=== PATIENT | female | born 2000 | race Hispanic/Latino ===

== ENCOUNTER 2024-06-27 02:07 | Emergency (ER) | payer BC ==
[2024-06-27] MEDS ORDERED: ACETAMINOPHEN 500 MG TAB ONE (02:30)
[2024-06-27] MEDS ORDERED: NA CHLORIDE 0.9% 2,000 ML ONE (02:39)
[2024-06-27 03:28] LABS: Absolute Lymphocytes (CBC) 0.9 K/uL (0.7-4.9); Absolute Monocytes 1.2 K/uL (0.1-1.3); Absolute Neutrophil 17.1 K/uL (1.8-8.0); Basophils % 0.1 % (0-1.3); Hematocrit 26.8 % (36.0-45.0); Hemoglobin 9.1 g/dL (12.0-15.0); Lymphocytes % 4.7 % (15.3-44.8); MCH 29.9 pg (27.0-35.0); MCHC 33.9 g/dL (32.0-36.0); MCV 88.2 fL (80-100); MPV 8.6 fL (7.6-11.3); Monocytes % 6.4 % (3.3-12.3); Neutrophils % 88.8 % (41.7-73.7); Platelets 196 thou/uL (152-406); RBC Red Blood Cell Count 3.03 M/uL (3.86-4.86); Red Cell Distribution Width 14.5 % (12.1-15.2)
[2024-06-27 03:59] LABS: Albumin 2.1 g/dL (3.4-5.0); Albumin/Globulin Ratio 0.5 (1.1-1.8); Anion Gap 10.9 mEq/L (5.0-15.0); Globulin 4.4 g/dL (2.3-3.5); Potassium 2.9 mEq/L (3.5-5.1); Protein, Total 6.5 g/dL (6.4-8.2)
[2024-06-27 04:01] LABS: Renal Epithelial <5 /HPF (None Seen); Specific Gravity 1.006 (1.005-1.030); Urine Bacteria <20 /HPF (<20); Urine Bilirubin NEGATIVE (Negative); Urine Blood 1+ (Negative); Urine Clarity Extremely Turbid (Clear); Urine Color Yellow (Yellow); Urine Culture Reflex Order REFLEXED; Urine Glucose NEGATIVE (Negative); Urine Ketones NEGATIVE (Negative); Urine Microscopic Reflex YN ORDER UMIC; Urine Mucus Slight /HPF (None Seen); Urine Nitrite NEGATIVE (Negative); Urine Protein 1+ (Negative); Urine RBC 21-50 /HPF (None Seen); Urine Urobilinogen 1+ (Normal); Urine WBC >50 /HPF (<5)
[2024-06-27 04:03] LABS: SARS-CoV-2 Antigen CONTROL BLUE LINE VIS/BG OK; SARS-CoV-2 Antigen Rapid Res Negative (Negative)
--- NOTE | 2024-06-27 04:07 | RAD REPORT ---
EXAM DESCRIPTION: OB Limited CLINICAL HISTORY: 24 years Female, fever body aches 22 weeks COMPARISON: None. TECHNIQUE: Limited greater than 14 week obstetrical ultrasounds performed with transabdominal imaging . FINDINGS: measurements: FL: 3.9 cm compatible with an estimated gestational age of 22 weeks, 3 days. ZAYRA: Qualitatively normal appearing ZAYRA. There is a deepest vertical pocket measuring at least 5.5 cm . Placenta: Posterior. No definite abnormality. Cervical length: Not provided. No definite abnormality presentation: Cephalic heart rate: 163 bpm. No definite abnormality of the maternal adnexa Anatomic survey: Not performed. IMPRESSION: 1. Single live intrauterine with estimated gestational age of 22 weeks, 3 days. heart rate of 163 bpm. Close continued obstetrical follow-up recommended. Electronically signed by: Miguel Yan DO 06/27/2024 04:02 AM [facility] [id number] Due to temporary technical issues with the PACS/Power scribe reporting system, reports are being signed by the in-house radiologist without review as a courtesy to ensure prompt reporting the interpreting radiologist is fully responsible for the content of the report. Transcribed Date/Time: 06/27/2024 4:07 AM
--- NOTE | 2024-06-27 04:27 | EDPHYS ---
Physician Documentation [facility] Name: Zuleika Beaulieu Age: 24 yrs Sex: Female : 2000 Arrival Date: 06/27/2024 Time: 02:07 Bed 8 Private MD: ED Physician Inge Jin HPI: 06/27 02:35 This 24 yrs old Female presents to ER via Ambulatory with complaints of 22 sp3 WEEKS PREG, Fever. 02:35 24-year-old female G1, P0 at 22 weeks presents with chief complaint fever, body aches sp3 and feelings of dehydration. Symptoms been going on for the last 4 days she states that fever breaks occasionally on acetaminophen but today is worse. She endorses cough, congestion upper respiratory symptoms. She denies headache, neck pain or stiffness, chest pain, shortness of breath, abdominal pain, vaginal bleeding or discharge, rash, known sick contacts, travel history, or any other signs or symptoms on ROS at this time.. 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 - Infectious Disease History:: Denies. - Social history:: Smoking status: Patient denies any tobacco usage or history of. ROS: 02:36 Eyes: Negative for injury, pain, redness, and discharge, ENT: Negative for injury, sp3 pain, and discharge, Neck: Negative for injury, pain, and swelling, Respiratory: Negative for shortness of breath, cough, wheezing, and pleuritic chest pain, Abdomen/GI: Negative for abdominal pain, nausea, vomiting, diarrhea, and constipation, Back: Negative for injury and pain, MS/Extremity: Negative for injury and deformity, Skin: Negative for injury, rash, and discoloration, Neuro: Negative for headache, weakness, numbness, tingling, and seizure, Psych: Negative for depression, anxiety, suicide ideation, homicidal ideation, and hallucinations, Allergy/Immunology: Negative for hives, rash, and allergies, Endocrine: Negative for neck swelling, polydipsia, polyuria, polyphagia, and marked weight changes, Hematologic/Lymphatic: Negative for swollen nodes, abnormal bleeding, and unusual bruising, Exam: 02:37 Constitutional: This is a well developed, well nourished patient who is awake, alert, sp3 and in no acute distress. Head/Face: Normocephalic, atraumatic. Eyes: Pupils equal round and reactive to light, extra-ocular motions intact. Lids and lashes normal. Conjunctiva and sclera are non-icteric and not injected. Cornea within normal limits. Periorbital areas with no swelling, redness, or edema. Neck: Trachea midline, no thyromegaly or masses palpated, and no cervical lymphadenopathy. Supple, full range of motion without nuchal rigidity, or vertebral point tenderness. No Meningismus. Chest/axilla: Normal chest wall appearance and motion. Nontender with no deformity. No lesions are appreciated. Respiratory: Lungs have equal breath sounds bilaterally, clear to auscultation and percussion. No rales, rhonchi or wheezes noted. No increased work of breathing, no retractions or nasal flaring. Abdomen/GI: Soft, non-tender, with normal bowel sounds. No distension or tympany. No guarding or rebound. No evidence of tenderness throughout. Back: No spinal tenderness. No costovertebral tenderness. Full range of motion. Skin: Warm, dry with normal turgor. Normal color with no rashes, no lesions, and no evidence of cellulitis. MS/ Extremity: Pulses equal, no cyanosis. Neurovascular intact. Full, normal range of motion. Neuro: Awake and alert, GCS 15, oriented to person, place, time, and situation. Cranial nerves II-XII grossly intact. Motor strength 5/5 in all extremities. Sensory grossly intact. Cerebellar exam normal. Normal gait. Psych: Awake, alert, with orientation to person, place and time. Behavior, mood, and affect are within normal limits. 02:37 Cardiovascular: Rate: tachycardic, Vital Signs: 02:21 BP 121 / 70; Pulse 149; Resp 22; cg 02:21 Temp 102.8; cg 02:21 Pulse Ox 100% ; Weight 52.16 kg; Height 5 ft. 2 in. ; Pain 7/10; cg 03:54 BP 92 / 47; Pulse 109; Resp 18; Temp 99.9; Pulse Ox 98% ; Pain 0/10; bm8 04:53 BP 103 / 62; Pulse 107; Resp 18; Temp 98.9; Pulse Ox 100% ; Pain 0/10; bm8 05:47 BP 94 / 51; Pulse 103; Resp 20; Temp 98.9; Pulse Ox 99% ; Pain 0/10; bm8 02:21 Body Mass Index 21.03 (52.16 kg, 157.48 cm) cg 02:21 Pain Scale: Adult cg 03:54 Pain Scale: Adult bm8 04:53 Pain Scale: Adult bm8 05:47 Pain Scale: Adult bm8 Kathy Coma Score: 03:54 Eye Response: spontaneous(4). Motor Response: obeys commands(6). Verbal Response: bm8 oriented(5). Total: 15. 04:53 Eye Response: spontaneous(4). Motor Response: obeys commands(6). Verbal Response: bm8 oriented(5). Total: 15. 05:47 Eye Response: spontaneous(4). Motor Response: obeys commands(6). Verbal Response: bm8 oriented(5). Total: 15. MDM: 02:26 Medical Screening Exam initiated sp3 02:38 Data reviewed: vital signs, nurses notes, lab test result(s), radiologic studies. ED sp3 course: 24-year-old 22 weeks now with febrile illness. Differential diagnosis includes viral illness, influenza, COVID-19, strep pharyngitis, RSV, pneumonia, bronchitis, other sepsis, among others. Workup will include chest x-ray, urine analysis, full laboratory workup including lactate, sepsis fluid bolus, and general supportive care. Patient denies any abdominal or OB type complaints.. 04:25 ED course: Patient with 19,000 white count and current blood pressure 88/47 with heart sp3 rate 109 after IV fluids. Lactate 1.7. Rocephin IV has been started 1 g. UA demonstrates clear UTI. Swabs are negative as is chest x-ray. Ultrasound demonstrates normal consistent with dates without complication.. 04:35 ED course: Patient being transferred due to and establish care at [facility].. sp3 04:35 ED course: Reevaluation of sepsis after fluid bolus demonstrates heart rate down to sp3 109, temperature at 99.9 and blood pressure at 92/47. We will continue IV fluids.. 06/27 02:30 Order name: Blood Culture Adult (2) sp3 06/27 02:30 Order name: CBC with Diff; Complete Time: 05:59 sp3 11/22 02:30 Order name: CMP; Complete Time: 04:20 3 06/27 02:30 Order name: Lactate w/ 2H reflex if indic.; Complete Time: 04:20 3 06/27 02:30 Order name: Urinalysis w/ reflexes; Complete Time: 04:20 3 06/27 02:30 Order name: Flu; Complete Time: 04:20 3 06/27 02:30 Order name: SARS RAPID; Complete Time: 04:20 sp3 06/27 02:30 Order name: Strep sp3 06/27 03:31 Order name: Manual Differential; Complete Time: 05:59 EDMS 06/27 04:04 Order name: Throat Culture [facility] 06/27 04:07 Order name: Urine Culture [facility] 06/27 02:30 Order name: Chest Single View XRAY 3 06/27 02:39 Order name: US OB Limited; Complete Time: 04:20 3 06/27 02:30 Order name: Cardiac monitoring; Complete Time: 02:43 3 06/27 02:30 Order name: IV Saline Lock - Large Bore; Complete Time: 02:43 sp3 06/27 02:30 Order name: Labs collected and sent; Complete Time: 02:43 3 06/27 02:30 Order name: O2 Per Protocol; Complete Time: 02:43 3 06/27 02:30 Order name: O2 Sat Monitoring; Complete Time: 02:43 3 06/27 02:30 Order name: Vital Signs; Complete Time: 02:43 sp3 Administered Medications: 02:43 Drug: Acetaminophen PO 1000 mg PO once Route: PO; bm8 04:52 Follow up: Response: No adverse reaction bm8 03:07 Drug: NS 0.9% IV (30 ml/kg) 30 ml/kg IV at bolus once; Sepsis Protocol; to be given as lg3 a bolus over 90 minutes Route: IV; Rate: bolus; Site: right antecubital; 04:50 Follow up: Response: No adverse reaction; IV Status: Completed infusion; IV Intake: bm8 2000ml 04:41 Drug: Rocephin IV 1 grams IV at calculated rate once; Given slow IV push per pharmacy lg3 instructions Route: IV; Rate: calculated rate; Site: right antecubital; 04:57 Follow up: Response: No adverse reaction; IV Status: Completed infusion; IV Intake: [id number] 04:57 Drug: Potassium PO Effervescent Tablet 50 mEq PO once; dissolve in 4 ounces of water or lg3 juice Route: PO; 05:48 Follow up: Response: No adverse reaction bm8 04:57 Drug: NS 0.9% IV 1000 ml IV at 1000 ml once; to be given as a bolus over 60 minutes lg3 Route: IV; Rate: 1000 ml; Site: left antecubital; 05:48 Follow up: Response: No adverse reaction; IV Status: Completed infusion; IV Intake: bm8 1000ml Disposition Summary: 06/27/24 04:27 Transfer Ordered Notes: Transfer Location: [facility] System sp3 Reason: Higher level of care sp3 Condition: Stable sp3 Problem: new sp3 Symptoms: have worsened sp3 Accepting Physician: OB on-call at [facility].(06/27/24 06:16) bm8 Diagnosis - Urosepsis, fever, dehydration sp3 Forms: - Medication Reconciliation Form sp3 - SBAR form sp3 Signatures: Dispatcher [employer] Morenita Enriquez, RN RN lg3 Inge Jin MD MD sp3 Tere Oneill RN RN ha1 Danyel Dominguez RN RN bm8 Corrections: (The following items were deleted from the chart) 02: 02:31 BLOOD CULTURE*+BA.LAB.BRZ ordered. EDMS EDMS 02: 02:31 CBC+H.LAB.BRZ ordered. EDMS EDMS 02: 02:31 COMPREHENSIVE METABOLIC PANEL+C.LAB.BRZ ordered. EDMS EDMS 02: 02:31 LACTATE+C.LAB.BRZ ordered. EDMS EDMS 02:31 02:31 Urinalysis+U.LAB.BRZ ordered. EDMS EDMS 02:31 02:31 Influenza Screen (A \T\ B)+BA.LAB.BRZ ordered. EDMS EDMS 02:31 02:31 SARS-COV-2 Antigen Rapid+I.LAB.BRZ ordered. EDMS EDMS 02: 02:31 Respiratory Syncytial Virus Ag+BA.LAB.BRZ ordered. EDMS EDMS 02:31 02:31 Group A Streptococcus Rapid Sc+BA.LAB.BRZ ordered. EDMS EDMS 02:31 02:31 Chest Single View+RAD.RAD.BRZ ordered. EDMS EDMS 02:37 02:36 Constitutional: Negative for fever, chills, and weight loss, Eyes: Negative for sp3 injury, pain, redness, and discharge, ENT: Negative for injury, pain, and discharge, Neck: Negative for injury, pain, and swelling, Respiratory: Negative for shortness of breath, cough, wheezing, and pleuritic chest pain, Abdomen/GI: Negative for abdominal pain, nausea, vomiting, diarrhea, and constipation, Back: Negative for injury and pain, MS/Extremity: Negative for injury and deformity, Skin: Negative for injury, rash, and discoloration, Neuro: Negative for headache, weakness, numbness, tingling, and seizure, Psych: Negative for depression, anxiety, suicide ideation, homicidal ideation, and hallucinations, Allergy/Immunology: Negative for hives, rash, and allergies, Endocrine: Negative for neck swelling, polydipsia, polyuria, polyphagia, and marked weight changes, Hematologic/Lymphatic: Negative for swollen nodes, abnormal bleeding, and unusual bruising, sp3 02:39 02:39 OB Limited+US.RAD.BRZ ordered. EDMS EDMS 06:16 04:27 OB on-call at [facility]. sp3 bm8
--- NOTE | 2024-06-27 04:27 | ER ---
Nurse's Notes [facility] Name: Zuleika Beaulieu Age: 24 yrs Sex: Female : 2000 Arrival Date: 06/27/2024 Time: 02:07 Bed 8 Private MD: Diagnosis: Urosepsis, fever, dehydration Presentation: 06/27 02:21 Chief complaint: Patient states: Fever x 4 days. Highest fever 104. C/o head congestion cg and headache. Coronavirus screen: Vaccine status: Patient reports receiving the 2nd dose of the covid vaccine. Ebola Screen: Patient negative for fever greater than or equal to 101.5 degrees Fahrenheit, and additional compatible Ebola Virus Disease symptoms. Initial Sepsis Screen: Does the patient meet any 2 criteria? No. Patient's initial sepsis screen is negative. 02:21 Method Of Arrival: Ambulatory cg 03:09 Initial Sepsis Screen: Does the patient have a suspected source of infection? No. lg3 Patient's initial sepsis screen is negative. Risk Assessment: Do you want to hurt yourself or someone else? Patient reports no desire to harm self or others. Onset of symptoms was June 23, 2024. 03:09 Acuity: CHRIS 3 lg3 Triage Assessment: 02:23 General: Appears uncomfortable, Behavior is cooperative. Pain: Complains of pain in ha1 BODY ACHES. Neuro: Level of Consciousness is awake, alert, obeys commands, Oriented to person, place, time, situation. Cardiovascular: Patient's skin is warm and dry. Respiratory: Reports NASAL CONGESTION Airway is patent Respiratory effort is even, unlabored, Respiratory pattern is regular, symmetrical. : No signs and/or symptoms were reported regarding the genitourinary system. Derm: Skin is pink, warm \T\ dry. 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 - Infectious Disease History:: Denies. - Social history:: Smoking status: Patient denies any tobacco usage or history of. Screenin:02 [facility] ED Fall Risk Assessment (Adult) History of falling in the last 3 months, ha1 including since admission No falls in past 3 months (0 pts) Confusion or Disorientation No (0 pts) Intoxicated or Sedated No (0 pts) Impaired Gait No (0 pts) Mobility Assist Device Used No (0 pt) Altered Elimination No (0 pt) Score/Fall Risk Level 0 - 2 = Low Risk Oriented to surroundings, Maintained a safe environment, Educated pt \T\ family on fall prevention, incl call for assistance when getting out of bed, Hourly rounding (assess needs \T\ fall precautionary measures) done. Abuse screen: Denies threats or abuse. Denies injuries from another. Nutritional screening: No deficits noted. Tuberculosis screening: No symptoms or risk factors identified. Assessment: 03:00 General: Appears in no apparent distress. comfortable, Behavior is calm, cooperative. lg3 Pain: Complains of pain in head. Neuro: No deficits noted. Arboleda Agitation-Sedation Scale (RASS): 0 - Alert and Calm Level of Consciousness is awake, alert, obeys commands, Oriented to person, place, time, situation, Reports headache. Cardiovascular: No deficits noted. Denies chest pain, shortness of breath, Capillary refill < 3 seconds Clubbing of nail beds is absent JVD is absent Patient's skin is warm and dry. Rhythm is sinus tachycardia. Respiratory: Reports cough that is Breath sounds are clear bilaterally. GI: No deficits noted. Abdomen is round non-distended. : No deficits noted. No signs and/or symptoms were reported regarding the genitourinary system. Urine is clear. EENT: No deficits noted. Reports nasal congestion nasal discharge. Derm: No deficits noted. No signs and/or symptoms reported regarding the dermatologic system. Skin is intact, is healthy with good turgor, Skin is dry, Skin is normal, Skin temperature is warm. Musculoskeletal: No deficits noted. No signs and/or symptoms reported regarding the musculoskeletal system. Circulation, motion, and sensation intact. Range of motion: intact in all extremities. 03:54 Reassessment: Patient appears in no apparent distress at this time. Patient and/or bm8 family updated on plan of care and expected duration. Pain level reassessed. Patient is alert, oriented x 3, equal unlabored respirations, skin warm/dry/pink. Patient denies pain at this time. Patient states feeling better. Patient states symptoms have improved. 05:27 Reassessment: report given to DEE Santos \T\ [place] [facility]. bm8 05:47 Reassessment: Patient appears in no apparent distress at this time. No changes from bm8 previously documented assessment. Patient and/or family updated on plan of care and expected duration. Pain level reassessed. Patient is alert, oriented x 3, equal unlabored respirations, skin warm/dry/pink. Vital Signs: 02:21 BP 121 / 70; Pulse 149; Resp 22; cg 02:21 Temp 102.8; cg 02:21 Pulse Ox 100% ; Weight 52.16 kg; Height 5 ft. 2 in. ; Pain 7/10; cg 03:54 BP 92 / 47; Pulse 109; Resp 18; Temp 99.9; Pulse Ox 98% ; Pain 0/10; bm8 04:53 BP 103 / 62; Pulse 107; Resp 18; Temp 98.9; Pulse Ox 100% ; Pain 0/10; bm8 05:47 BP 94 / 51; Pulse 103; Resp 20; Temp 98.9; Pulse Ox 99% ; Pain 0/10; bm8 02:21 Body Mass Index 21.03 (52.16 kg, 157.48 cm) cg 02:21 Pain Scale: Adult cg 03:54 Pain Scale: Adult bm8 04:53 Pain Scale: Adult bm8 05:47 Pain Scale: Adult bm8 Elm Mott Coma Score: 03:54 Eye Response: spontaneous(4). Motor Response: obeys commands(6). Verbal Response: bm8 oriented(5). Total: 15. 04:53 Eye Response: spontaneous(4). Motor Response: obeys commands(6). Verbal Response: bm8 oriented(5). Total: 15. 05:47 Eye Response: spontaneous(4). Motor Response: obeys commands(6). Verbal Response: bm8 oriented(5). Total: 15. ED Course: 02:14 Patient arrived in ED. gm2 02:26 Inge Jin MD is Attending Physician. sp3 02:31 Danyel Dominguez, DEE is Primary Nurse. bm8 02:50 Initial lab(s) drawn, by nh, sent to lab. First set of blood cultures drawn by me, lg3 Urine collected: clean catch specimen, clear, COVID swab sent to lab. Flu and/or RSV swab sent to lab. Strep swab sent to lab. Patient maintains SpO2 saturation greater than 95% on room air. 03:00 Patient has correct armband on for positive identification. Placed in gown. Bed in low lg3 position. Call light in reach. Side rails up X 1. Client placed on continuous cardiac and pulse oximetry monitoring. NIBP monitoring applied. library monitor on. Door closed. Noise minimized. Pillow given. Family accompanied patient. 03:00 Arm band placed on right wrist. bm8 03:00 Inserted saline lock: 20 gauge in right antecubital area, using aseptic technique. lg3 Blood collected. Flushed with 10 mL NS. 03:10 Triage completed. lg3 03:16 US OB Limited In Process Unspecified. EDMS 03:35 Chest Single View XRAY In Process Unspecified. EDMS 03:54 No provider procedures requiring assistance completed. bm8 04:27 Transfer initiated at 0427. kmf 04:55 Patient accepted at [facility] by Dr. Jany Anderson at 0455. Nurse to nurse kmf done by Kathleen Montes RN at 0455 . [place] to transport patient. 05:47 Provided Education on: need for transfer. bm8 05:47 Patient transferred, IV remains in place. bm8 Administered Medications: 02:43 Drug: Acetaminophen PO 1000 mg PO once Route: PO; bm8 04:52 Follow up: Response: No adverse reaction bm8 03:07 Drug: NS 0.9% IV (30 ml/kg) 30 ml/kg IV at bolus once; Sepsis Protocol; to be given as lg3 a bolus over 90 minutes Route: IV; Rate: bolus; Site: right antecubital; 04:50 Follow up: Response: No adverse reaction; IV Status: Completed infusion; IV Intake: bm8 2000ml 04:41 Drug: Rocephin IV 1 grams IV at calculated rate once; Given slow IV push per pharmacy lg3 instructions Route: IV; Rate: calculated rate; Site: right antecubital; 04:57 Follow up: Response: No adverse reaction; IV Status: Completed infusion; IV Intake: [id number] 04:57 Drug: Potassium PO Effervescent Tablet 50 mEq PO once; dissolve in 4 ounces of water or lg3 juice Route: PO; 05:48 Follow up: Response: No adverse reaction bm8 04:57 Drug: NS 0.9% IV 1000 ml IV at 1000 ml once; to be given as a bolus over 60 minutes lg3 Route: IV; Rate: 1000 ml; Site: left antecubital; 05:48 Follow up: Response: No adverse reaction; IV Status: Completed infusion; IV Intake: bm8 1000ml Medication: 03:54 VIS not applicable for this client. bm8 Intake: 04:50 IV: 2000ml; Total: 2000ml. bm8 04:57 IV: 10ml; Total: 2010ml. lg3 05:48 IV: 1000ml; Total: 3010ml. bm8 Outcome: 04:27 ER care complete, transfer ordered by . sp3 05:47 Transferred by ground EMS Transfer form completed. X-rays sent w/ patient. Note: [place] 8 [facility] 05:47 Condition: stable 05:47 Instructed on the need for transfer, Demonstrated understanding of follow-up care, medications, 06:16 Patient left the ED. bm8 Addendum: 06/30/2024 07:54 Addendum: Culture Results: Positive urine culture. pt transferred to [facility], report was faxed to [phone],spoke with Joey. Signatures: Dispatcher [employer] EDMS Chandni Toscano Cindy, RN Morenita Champion RN RN lg3 Inge Jin MD MD sp3 Tere Oneill RN RN ha1 Erma Neff 2 [facility] Danyel Dominguez RN RN bm8 Corrections: (The following items were deleted from the chart) 06/27 04:53 04:52 Response: No adverse reaction; IV Status: Completed infusion; IV Intake: 2000ml bm8 bm8
[2024-06-27] MEDS ORDERED: CEFTRIAXONE 1000 MG/VIAL ONE (04:30)
[2024-06-27] MEDS ORDERED: NA CHLORIDE 0.9% 1,000 ML ONE (04:53)
[2024-06-27] MEDS ORDERED: POTASSIUM 25 MEQ EFFERV TAB ONE (04:53)
[2024-06-27 05:10] LABS: Band Neutrophils 55 % (0-1); Blood Morphology Comment NOT SEEN (NOT SEEN); Differential Total Cells Count 100; Lymphocytes 8 % (15-42); Monocytes 5 % (0-10); Platelet Estimate ADEQ; Reactive Lymphocytes 1 %; Segmented Neutrophils 31 % (40-80)
--- NOTE | 2024-06-27 05:46 | RAD REPORT ---
EXAM DESCRIPTION: Chest Single View CLINICAL HISTORY: fever, tachy COMPARISON: None TECHNIQUE: Single AP view of the chest. FINDINGS: Lung volumes adequate. Cardiac silhouette is normal in size. No pneumothorax. No large pleural effusion. No focal consolidation. No acute bony finding. IMPRESSION: No evidence of acute cardiopulmonary disease. Electronically signed by: Apurva Kern MD 06/27/2024 03:54 AM [facility] Z9 Due to temporary technical issues with the PACS/Fishbowl reporting system, reports are being nereida d by the in-house radiologist without review as a courtesy to ensure prompt reporting the interpreting radiologist is fully responsible for the content of the report. Transcribed Date/Time: 06/27/2024 5:46 AM
[2024-06-27 09:10] VITALS: TEMP 98.9
[2024-06-27 09:11] VITALS: BP 94/51; O2SAT 99
== END 2024-06-27 06:16 | disposition short-term general hospital (02) ==
LOC: ER 02:07
DX: O26.892 Other specified pregnancy related conditions, second trimester (principal); E86.0 Dehydration; R50.9 Fever, unspecified; R05.9 Cough, unspecified; Z3A.22 22 weeks gestation of pregnancy; Z11.52 Encounter for screening for COVID-19
CPT/HCPCS: 96365; 96361; 87040 ×2; 87070; 87088; 85025; 81001; 87086; 36415; 87081; 83605; 87077; 87186; 80053; 87804 ×2; 71045; 76815; 99285; 87811; J7030 ×2; J0696